=== PATIENT | female | born 1995 | race Caucasian/White ===

== ENCOUNTER 2019-04-22 11:21 | Emergency (ER) | payer OTHER, SELFPAY ==
[2019-04-22 11:28] VITALS: BP 142/97; PULSE 78; RESP 16; TEMP 36.6; O2SAT 99; BMI 25.7
--- NOTE | 2019-04-22 11:36 | ED_ITS ---
HPI - Chest Pain <SHELL Lau - Last Filed: 04/22/19 21:51> General Chief Complaint: Chest Pain Stated Complaint: Indigestion/coughed up blood last night Time Seen by Provider: 04/22/19 11:24 Source: patient Mode of arrival: ambulatory Limitations: no limitations History of Present Illness HPI narrative: 24-year-old feet with history of anxiety and fast heart rate for which she takes propranolol for constant chest pressure and pain starting six days ago. She states the pressure is substernal 5/10 worse with a deep breath and running around. She denies radiation of the pain. She has associated nausea and shortness of breath. She woke up in the middle night coughing and no ticed some blood tinged sputum. Patient denies fevers, headaches, abdominal pain, vomiting, diarrhea, syncope, diaphoresis, or other concerning symptoms. She denies any recent travel or long trips, denies taking any control, and denies her breast-feeding at this time. Patient states that she has been treated for H pylori 2 times in her life. MD complaint: chest pain Related Data Home Medications Medication Instructions Recorded Confirmed propranolol 60 mg PO QAM 04/22/19 04/22/19 sertraline 50 mg PO QPM 04/22/19 04/22/19 Previous Rx's Medication Instructions Recorded omeprazole 20 mg PO DAILY 14 Days #14 cap 04/22/19 Allergies Allergy/AdvReac Type Severity Reaction Status Date / Time No Known Drug Allergies Allergy Verified 04/22/19 11:28 Review of Systems <SHELL Lau - Last Filed: 04/22/19 21:51> Review of Systems Narrative: REVIEW OF SYSTEMS: GENERAL: Denies fever or chills. HENT: No head trauma, hearing loss or sore throat. EYES: No loss of vision, double vision, eye pain, or irritation. CARDIOVASCULAR: Complains of chest pain, see HPI. RESPIRATORY: Complains of shortness of breath, see HPI. GASTROINTESTINAL: Complains of nausea, see HPI. GENITOURINARY: No flank pain or dysuria. MUSCULOSKELETAL: No pain, weakness, or deformities. INTEGUMENTARY: No rash, lesions, or pruritus. NEURO: No numbness, tingling, memory loss, or confusion. PSYCH: No behavior or mood changes. PFSH <SHELL Lau - Last Filed: 04/22/19 21:51> Medical History Anxiety (Acute) Social History Smoking Status: Never smoker Social History Smoking Status: Never smoker Exam <SHELL Lau - Last Filed: 04/22/19 21:51> Initial Vital Signs Initial Vital Signs: Vital Signs Temperature 97.8 F 04/22/19 11:28 Pulse Rate 78 04/22/19 11:28 Respiratory Rate 16 04/22/19 11:28 Blood Pressure 142/97 H 04/22/19 11:28 Pulse Oximetry 99 04/22/19 11:28 PHYSICAL EXAMINATION: GENERAL: Well groomed, alert, and cooperative. Answers questions promptly and appropriately. Vital signs noted. HENT: Normocephalic, atraumatic. Ear canals patent. Oral mucosa is pink and moist. EYES: Conjunctiva pink, sclera white, no periorbital swelling. CHEST: Normal to inspection and without deformities. CARDIOVASCULAR: S1 and S2 sounds normal. Regular rate and rhythm, no murmurs, clicks, or bruits. No pedal edema. RESPIRATORY: Normal respiratory rate, trachea midline, airway patent. No strid or, nasal flaring or accessory muscle use. Lungs are clear in all diez without wheeze, rhonchi, or crackles. GASTROINTESTINAL: Bowel sounds normoactive. Abdomen is soft, slight tenderness noted epigastric region. No organomegaly. MUSCULOSKELETAL: Normal gait and coordination. Equal tone and mass bilaterally. EXTREMITIES: CMS intact. Moves all extremities. SKIN: Warm, dry, soft, appropriate color for ethnicity. No lesions, rashes, or wounds. NEURO: Alert and Oriented X 3. Good coordination. No ataxia, or sensory deficits, or cognitive issues. PSYCH: Appropriate affect and mood. <Fawn Valladares DO - Last Filed: 04/23/19 19:35> Initial Vital Signs Initial Vital Signs: Vital Signs Temperature 97.8 F 04/22/19 11:28 Pulse Rate 78 04/22/19 11:28 Respiratory Rate 16 04/22/19 11:28 Blood Pressure 142/97 H 04/22/19 11:28 Pulse Oximetry 99 04/22/19 11:28 Scores <SHELL Lau - Last Filed: 04/22/19 21:51> Wells' Criteria for PE Clinical signs and symptoms of DVT: No PE is #1 Dx or equally likely: No Heart rate > 100: No Immobilization at least 3 days or surg in previous 4 weeks: No History of PE or DVT: No Hemoptysis: Yes Malignancy w/Treatment within 6 months or palliative: No Wells' PE Score total: 1 Course <CassieSHELL Silver - Last Filed: 04/22/19 21:51> Course Course Narrative: Patient states she was feeling significantly better after administration of the GI cocktail. At a conversation with the patient about the importance of follow-up testing for H pylori. Orders Ordered: Discontinued Medications Al Hydrox/Mg Hydrox/Simethicone 20 ml/ Lidocaine HCl 15 ml 0 ml PO NOW ONE Stop: 04/22/19 11:47 Last Admin: 04/22/19 12:00 Dose: 35 ml Documented by: WILLUITT Pantoprazole Sodium (Protonix) 40 mg IV NOW ONE Stop: 04/22/19 12:22 Last Admin: 04/22/19 12:38 Dose: 40 mg Documented by: CPRUITT Consultations Consultation #1: Patient staffed with Dr. Valladares. Vital Signs Vital signs: Vital Signs - 8 hr 04/22/19 11:28 04/22/19 12:03 Temperature 97.8 F Pulse Rate 78 91 H Respiratory Rate 16 22 Blood Pressure 142/97 H Blood Pressure [Right Arm] 120/85 Pulse Oximetry 99 98 <Fawn Valladares DO - Last Filed: 04/23/19 19:35> Orders Ordered: Discontinued Medications Al Hydrox/Mg Hydrox/Simethicone 20 ml/ Lidocaine HCl 15 ml 0 ml PO NOW ONE Stop: 04/22/19 11:47 Last Admin: 04/22/19 12:00 Dose: 35 ml Documented by: CPRUITT Pantoprazole Sodium (Protonix) 40 mg IV NOW ONE Stop: 04/22/19 12:22 Last Admin: 04/22/19 12:38 Dose: 40 mg Documented by: CPRUITT Vital Signs Vital signs: Vital Signs - 8 hr 04/22/19 11:28 04/22/19 12:03 Temperature 97.8 F Pulse Rate 78 91 H Respiratory Rate 16 22 Blood Pressure 142/97 H Blood Pressure [Right Arm] 120/85 Pulse Oximetry 99 98 MDM - Chest Pain <Cassie Andrade SENIOR REPORT DEVELOPER - Last Filed: 04/22/19 21:51> Medical Records Data Attestation: I reviewed the patient's medical records. Lab Data Attestation: I reviewed the patient's lab results. Result diagrams: 04/22/19 11:44 04/22/19 11:44 Labs: Lab Results 04/22/19 04/22/19 04/22/19 Range/Units 11:44 11:44 11:44 WBC 7.0 (4.5-11.0) X10^3/uL RBC 4.77 (4.0-5.2) X10^6/uL Hgb 14.2 (12.0-16.0) g/dL Hct 41.1 (36-46) % MCV 86.1 (80-100) fL MCH 29.8 (26-34) PG MCHC 34.6 (30-36) % RDW 12.4 (11.6-14.8) % Plt Count 248 (150-400) X10^3/uL Neut % (Auto) 56.7 (50-75) % Lymph % (Auto) 34.0 (25-40) % [place] % (Auto) 6.4 (3-14) % Eos % (Auto) 2.3 (2-4) % Baso % (Auto) 0.6 (0-2) % Neut # (Auto) 4000 (1630-8508) /uL Lymph # (Auto) 2400 (1108-0169) /uL [place] # (Auto) 500 (0-900) /uL Eos # (Auto) 200 (0-450) /uL Baso # (Auto) 0 (0-100) /uL PT 10.5 (10.1-12.7) SECONDS INR 0.9 (0.9-1.3) APTT 39 H (26.4-36.2) SECONDS D-Dimer < 200 (<230) ng/mL Sodium 141 (137-145) mmol/L Potassium 3.7 (3.4-5.1) mmol/L Chloride 103 (98-107) mmol/L Carbon Dioxide 26 (22-32) mmol/L BUN 11 (7-17) mg/dL Creatinine 0.60 (0.52-1.04) mg/dL Estimated GFR > 60.0 (>60) mL/min BUN/Creatinine Ratio 18.3 (6-22) Glucose 106 H (70-100) mg/dL Calcium 9.5 (8.4-10.2) mg/dL Total Bilirubin 0.7 (0.2-1.3) mg/dL AST 69 H (14-36) IU/L ALT 212 H (9-52) IU/L Alkaline Phosphatase 99 (38-126) U/L Total Creatine Kinase 98 (30-135) U/L CK-MB (CK-2) TNP CK-MB (CK-2) Rel Index TNP Troponin I < 0.012 (0.01-0.034) ng/mL Total Protein 7.5 (6.3-8.2) g/dL Albumin 4.3 (3.5-5.0) g/dL Globulin 3.2 (1.7-4.1) g/dL Albumin/Globulin Ratio 1.3 (1.0-2.8) Lipase 64 (23-300) U/L Imaging Data Chest x-ray: Radiologist's impression: [address] [address] XRay Report Signed Patient: Travis RodarteR#: [id number] : 1995Acct:[id number] Age/Sex: 24 / FDate of Service: 04/22/19 Loc: ED Accession Number: [id number] Procedure: XR chest 1V Ordering Provider: Cassie Andrade PROCEDURE: XR CHEST 1V INDICATIONS: Chest pain TECHNIQUE: One view of the chest was acquired. COMPARISON: None. FINDINGS: Surgical changes and devices: None. Lungs and pleura: Lungs are clear. No pleural effusions or pneumothorax. Mediastinum: Mediastinal contours appear normal. Normal variant azygos lobe fissure. Heart size is normal. Bones and chest wall: No suspicious bony lesions. Overlying soft tissues appear unremarkable. IMPRESSION: Normal chest. Dictated by: Priscilla Doyle M.D. on 04/22/2019 at 12:02 Approved by: Priscilla Doyle M.D. on 04/22/2019 at 12:02 ECG Data Interpretation: Normal sinus rhythm, rate 67, NC interval 126, QTC 3 89. No ectopy, no ST depression or ST elevation. T-wave inversion in lead 3 possibly artifact. EKG also viewed by Dr. Valladares. [facility] Narrative Medical decision making narrative: I suspect that her symptoms may be due to GERD as her EKG, labs, and chest x-ray were reassuring. Additionally, her symptoms improved after administration of the GI cocktail. She is also known to have H pylori and GERD, and her exam exhibited epigastric tenderness. Less likely ACS due to reassuring labs and EKG, less likely PE due to negative D- dimer and very little risk factors. Less likely musculoskeletal as pain was not reproduced on palpation of her sternum. Less likely infection as she does not exhibit any systemic symptoms such as fever or chills, her white blood cell count within normal limits. Strict return precautions given and follow-up instructions discussed. <Fawn Valladares, DO - Last Filed: 04/23/19 19:35> Lab Data Labs: Lab Results 04/22/19 04/22/19 04/22/19 Range/Units 11:44 11:44 11:44 WBC 7.0 (4.5-11.0) X10^3/uL RBC 4.77 (4.0-5.2) X10^6/uL Hgb 14.2 (12.0-16.0) g/dL Hct 41.1 (36-46) % MCV 86.1 (80-100) fL MCH 29.8 (26-34) PG MCHC 34.6 (30-36) % RDW 12.4 (11.6-14.8) % Plt Count 248 (150-400) X10^3/uL Neut % (Auto) 56.7 (50-75) % Lymph % (Auto) 34.0 (25-40) % [place] % (Auto) 6.4 (3-14) % Eos % (Auto) 2.3 (2-4) % Baso % (Auto) 0.6 (0-2) % Neut # (Auto) 4000 (0149-4915) /uL Lymph # (Auto) 2400 (1155-8193) /uL [place] # (Auto) 500 (0-900) /uL Eos # (Auto) 200 (0-450) /uL Baso # (Auto) 0 (0-100) /uL PT 10.5 (10.1-12.7) SECONDS INR 0.9 (0.9-1.3) APTT 39 H (26.4-36.2) SECONDS D-Dimer < 200 (<230) ng/mL Sodium 141 (137-145) mmol/L Potassium 3.7 (3.4-5.1) mmol/L Chloride 103 (98-107) mmol/L Carbon Dioxide 26 (22-32) mmol/L BUN 11 (7-17) mg/dL Creatinine 0.60 (0.52-1.04) mg/dL Estimated GFR > 60.0 (>60) mL/min BUN/Creatinine Ratio 18.3 (6-22) Glucose 106 H (70-100) mg/dL Calcium 9.5 (8.4-10.2) mg/dL Total Bilirubin 0.7 (0.2-1.3) mg/dL AST 69 H (14-36) IU/L ALT 212 H (9-52) IU/L Alkaline Phosphatase 99 (38-126) U/L Total Creatine Kinase 98 (30-135) U/L CK-MB (CK-2) TNP CK-MB (CK-2) Rel Index TNP Troponin I < 0.012 (0.01-0.034) ng/mL Total Protein 7.5 (6.3-8.2) g/dL Albumin 4.3 (3.5-5.0) g/dL Globulin 3.2 (1.7-4.1) g/dL Albumin/Globulin Ratio 1.3 (1.0-2.8) Lipase 64 (23-300) U/L ECG Data Attestation: I personally reviewed and interpreted this ECG as follows: Prior ECG tracings: not available for review Interpretation: normal sinus rhythm, no ST changes, T wave inversions noted lead 3 only. Discharge Plan Departure Patient Disposition: Home Clinical Impression: Chest pain due to GERD, Atypical chest pain Discharge Date/Time: 04/22/19 13:04 Instructions: DI for Gastroesophageal Reflux Disease (GERD) Activity Restrictions/Additional Instructions: Thank you for entrusting me with your care today. As discussed, EKG and chest x- ray did not show any concerning findings. Your AST and ALT which are liver enzymes were little bit elevated, I recommend following up with your primary care provider in 1-2 weeks for re-evaluation of these labs as well as H pylori testing if indicated. I prescribed you omeprazole, please take 1 pill in the morning every day for 2 weeks. Return to the emergency department if you develop severe abdominal pain, severe chest pain, worsening shortness of breath, dizziness, syncope, uncontrollable vomiting, or other concerning symptoms. Prescriptions: New omeprazole 20 mg capsule,delayed release(DR/EC) 20 mg PO DAILY 14 Days Qty: 14 RF: 0 No Action propranolol 60 mg Capsule,Extended Release 24 Hr 60 mg PO QAM RF: 0 sertraline 50 mg Tablet 50 mg PO QPM RF: 0 Referrals: Edin Ordonez MD [Primary Care Provider] -
[2019-04-22 11:53] LABS: Add Manual Diff / Slide Review NO; Basophils Absolute Auto 0 /uL (0-100); Basophils Percent Auto 0.6 % (0-2); Eosinophils Absolute Auto 200 /uL (0-450); Eosinophils Percent Auto 2.3 % (2-4); Hematocrit 41.1 % (36-46); Hemoglobin 14.2 g/dL (12.0-16.0); Lymphocytes Absolute Auto 2400 /uL (1100-4500); Mean Corpuscular HGB Conc 34.6 % (30-36); Mean Corpuscular Hemoglobin 29.8 PG (26-34); Mean Corpuscular Volume 86.1 fL (80-100); Monocytes Absolute Auto 500 /uL (0-900); Monocytes Percent Auto 6.4 % (3-14); Neutrophils Absolute Auto 4000 /uL (1500-7000); Neutrophils Percent Auto 56.7 % (50-75); Platelet Count 248 X10^3/uL (150-400); Red Blood Cell Count 4.77 X10^6/uL (4.0-5.2); Red Cell Distribution Width 12.4 % (11.6-14.8)
[2019-04-22 11:57] LABS: INR 0.9 (0.9-1.3); Prothrombin Time 10.5 SECONDS (10.1-12.7)
[2019-04-22 11:59] LABS: PTT Partial Thromboplastin Tim 39 SECONDS (26.4-36.2)
[2019-04-22 12:00] LABS: D Dimer < 200 ng/mL (<230)
[2019-04-22] MEDS: MAG HYDROX/ALUMINUM/SIMETH SUS 20 ML, LIDOCAINE VISCOUS 2% 15 ML PO (12:00)
[2019-04-22 12:02] LABS: Alanine Aminotransferase 212 IU/L (9-52); Albumin 4.3 g/dL (3.5-5.0); Albumin Globulin Ratio 1.3 (1.0-2.8); Alkaline Phosphatase 99 U/L (38-126); Aspartate Aminotransferase 69 IU/L (14-36); BUN Creatinine Ratio 18.3 (6-22); Bilirubin Total 0.7 mg/dL (0.2-1.3); Blood Urea Nitrogen 11 mg/dL (7-17); Calcium 9.5 mg/dL (8.4-10.2); Carbon Dioxide 26 mmol/L (22-32); Chloride 103 mmol/L (98-107); Creatine Kinase 98 U/L (30-135); Estimated Glomerular Filt Rate > 60.0 mL/min (>60); Globulin 3.2 g/dL (1.7-4.1); Glucose 106 mg/dL (70-100); HEMOLYSIS < 15 (0-50); Lipase 64 U/L (23-300); Potassium 3.7 mmol/L (3.4-5.1); Sodium 141 mmol/L (137-145); Total Protein 7.5 g/dL (6.3-8.2)
[2019-04-22 12:03] VITALS: BP 120/85; PULSE 91; RESP 22; O2SAT 98
[2019-04-22 12:13] LABS: Troponin I < 0.012 ng/mL (0.01-0.034)
[2019-04-22 12:30] VITALS: BP 112/68; PULSE 71; RESP 15; O2SAT 99
[2019-04-22] MEDS: PANTOPRAZOLE 40 MG VIAL IV (12:38)
[2019-04-22 13:03] VITALS: BP 112/68; PULSE 82; RESP 12; O2SAT 100
== END 2019-04-22 13:04 | disposition home or self-care (01) ==
PROVIDERS: Emergency Provider Nurse Practitioner; PCP Family Medicine
DX: K21.9 Gastro-esophageal reflux disease without esophagitis (principal); R07.89 Other chest pain
CPT/HCPCS: 36415; 36591; 71045; 80053; 82550; 83690; 84484; 85025; 85379; 85610; 85730; 93005; 96374; 99282; 99285; C9113

== ENCOUNTER → 2019-07-16 13:32 | Outpatient (CLI) | payer OTHER, SELFPAY ==
[2019-07-16 15:04] LABS: Urine N gonorrhoeae NOT DETECTED
[2019-07-16 15:05] LABS: Urine Chlamydia NOT DETECTED
== END ==
PROVIDERS: PCP Family Medicine; Visit Provider Obstetrics & Gynecology
DX: Z11.3 Encounter for screening for infections with a predominantly sexual mode of transmission (principal); Z34.82 Encounter for supervision of other normal pregnancy, second trimester
CPT/HCPCS: 87491; 87591

== ENCOUNTER → 2019-09-11 13:45 | Outpatient (CLI) | payer OTHER, SELFPAY ==
[2019-09-11 14:20] LABS: Appearance Urine UA CLEAR; Bilirubin Urine UA NEGATIVE (NEGATIVE); Color Urine UA YELLOW; Glucose Urine UA NEGATIVE (Negative); Ketones Urine UA NEGATIVE (NEGATIVE); Leukocyte Esterase Urine UA NEGATIVE (NEGATIVE); Nitrite Urine UA NEGATIVE (Negative); Occult Blood Urine UA NEGATIVE (Negative); Protein Urine UA NEGATIVE (Negative); Urobilinogen Urine UA 0.2 E.U./dL (0.2)
[2019-09-11 14:24] LABS: pH Urine UA 6.5 (4.5-8.0)
[2019-09-11 14:26] LABS: Add Manual Diff / Slide Review NO; Basophils Absolute Auto 0 /uL (0-100); Basophils Percent Auto 0.3 % (0-2); Eosinophils Absolute Auto 100 /uL (0-450); Eosinophils Percent Auto 0.9 % (2-4); Hematocrit 33.7 % (36-46); Hemoglobin 11.9 g/dL (12.0-16.0); Lymphocytes Absolute Auto 1900 /uL (1100-4500); Lymphocytes Percent Auto 22.7 % (25-40); Mean Corpuscular HGB Conc 35.1 % (30-36); Mean Corpuscular Hemoglobin 30.9 PG (26-34); Mean Corpuscular Volume 87.9 fL (80-100); Monocytes Absolute Auto 700 /uL (0-900); Monocytes Percent Auto 7.8 % (3-14); Neutrophils Absolute Auto 5800 /uL (1500-7000); Neutrophils Percent Auto 68.3 % (50-75); Platelet Count 217 X10^3/uL (150-400); Red Blood Cell Count 3.84 X10^6/uL (4.0-5.2); Red Cell Distribution Width 12.9 % (11.6-14.8); White Blood Cell Count 8.5 X10^3/uL (4.5-11.0)
[2019-09-11 16:34] LABS: Hepatitis B Surface Antigen NEGATIVE s/c (NEGATIVE)
[2019-09-11 16:48] LABS: HIV 1 & 2 Ab/Ag 4th Gen Combo NEGATIVE (NEGATIVE)
[2019-09-11 17:25] LABS: Hep C Virus Ab w/Reflex Quant NEGATIVE s/c (NEGATIVE)
[2019-09-13 18:17] LABS: RPR Screen Nonreactive (Nonreactive)
[2019-09-14 18:30] LABS: AFP, Serum 54.9 ng/mL; Brief History NTD NG; Calc Gestational Age 18.3; Cigarette Smoker N; Donated Egg NOT GIVEN; Donor Egg Age NOT GIVEN; Estriol, Free 1.46 ng/mL; Inhibin A, Dimeric 109 pg/mL; Inhibin A, MoM 0.67; Maternal Ethnicity NOT GIVEN; Maternal Weight 162 lbs; Number of Fetuses NOT GIVEN; Previous Pregnancy Down Syndro NOT GIVEN; hCG, MoM 0.51; hCG, Serum 11.3 IU/mL
== END ==
PROVIDERS: PCP Family Medicine; Referring Provider Family Medicine; Visit Provider Family Medicine
DX: Z34.82 Encounter for supervision of other normal pregnancy, second trimester (principal)
CPT/HCPCS: 36415; 80055; 81003; 82105; 82677; 84702; 86336; 86787; 86803; 86850; 86900; 86901; 87086; 87389

== ENCOUNTER → 2019-09-26 14:05 | Outpatient (CLI) | payer OTHER, SELFPAY ==
--- NOTE | 2019-09-26 14:06 | DI.US.S_ITS ---
PROCEDURE: US OB >= 14 WEEKS FETUS INDICATIONS: ANATOMY OUTSIDE/PRIOR DATING DATA: Last menstrual period (LMP): 05/06/19. LMP-based estimated date of delivery (DEANNA): 02/10/20. First dating scan (date and location): 06/27/19. Estimated date of delivery (DEANNA) from first dating scan: 02/11/20. TECHNIQUE: Real-time scanning was performed of the fetus, with image documentation and biometric measurements. Endovaginal scanning: Not needed COMPARISON: [facility], , OB >= 14 WEEKS FETUS, 06/27/2019, 14:54. FINDINGS: General: A single living intrauterine gestation is present. Presentation: Transverse head right. Placenta: Placental position is posterior, without previa. Amniotic fluid index: 15.8 cm, normal range is 5-24 cm. heart rate: 145 beats per minute. Maternal cervical canal: 4.6 cm long. Normal lower limit is 2.5 cm. biometrics: Biparietal diameter: 5.2 cm, 21 weeks 5 days Head circumference: 19.6 cm, 21 weeks 6 days Abdominal circumference: 19.4 cm, 22 weeks 2 days Femur length: 3.5 cm, 20 weeks 6 days Estimated gestational age from initial scan: 20 weeks 2 days Composite gestational age from present scan: 21 weeks 5 days Estimated weight and percentile: 444 g, 98th percentile Measurement variability for biometric dating: +/- 7 days from 14 weeks to 15 weeks 6 days gestation, +/- 10 days from 16 weeks to 21 weeks 6 days gestation, +/- 2 weeks from 22 weeks to 27 weeks 6 days gestation, +/- 3 weeks for 28 weeks gestation or later. weight reference: 4500 g or EFW >90/95% is considered macrosomia or large for gestational age. EFW <10% is small for gestational age. EFW 5% or less is considered intra-uterine growth restriction. Anatomic survey: Neuro: Ventricles are non-dilated at less than 10 mm. Cisterna magna is normal at 3-11 mm. Cerebellum is normal in size and morphology. Nuchal skin fold: Normal at less than 6 mm between 14-21 weeks gestational age. Face: Nose and lips, facial profile are normal. Spine: No evidence for spina bifida. Heart: 4-chambered heart is present, with normal ventricular outflow tracts. Diaphragm: Diaphragm is intact. Stomach: Left-sided stomach is present. Kidneys: No hydronephrosis. Normal is less than 5 mm in 2nd trimester, less than 7 mm in 3rd trimester. Cord: 3-vessel cord has orthotopic insertion. Bladder: Normal in size. Extremities: All 4 extremities identified. IMPRESSION: Appropriate interval growth, no anomaly seen. The current estimated weight however is at the upper 98th percentile for current gestational age projected from the first OB ultrasound (most accurate). Please monitored for macrosomia in this patient and possible gestational diabetes. Followup for growth parameters in 2-3 weeks likely is warranted. Dictated by: Wan Villasenor M.D. on 09/26/2019 at 16:19 Approved by: Wan Villasenor M.D. on 09/26/2019 at 16:22
== END ==
PROVIDERS: PCP Family Medicine; Referring Provider Family Medicine; Visit Provider Family Medicine
DX: Z36.89 Encounter for other specified antenatal screening (principal); Z3A.21 21 weeks gestation of pregnancy
CPT/HCPCS: 76811

== ENCOUNTER → 2019-10-12 10:01 | Outpatient (CLI) | payer OTHER, SELFPAY ==
[2019-10-12 14:12] LABS: GTT (PREG) 1 Hour PP 50gm Dose 126 mg/dL (76-139)
== END ==
PROVIDERS: PCP Family Medicine; Referring Provider Family Medicine; Visit Provider Family Medicine
DX: O36.60X0 Maternal care for excessive fetal growth, unspecified trimester, not applicable or unspecified (principal)
CPT/HCPCS: 36415; 82950

== ENCOUNTER → 2019-10-21 14:45 | Outpatient (CLI) | payer OTHER, SELFPAY ==
--- NOTE | 2019-10-21 14:46 | DI.US.S_ITS ---
PROCEDURE: US OB LIMITED INDICATIONS: LGA OUTSIDE/PRIOR DATING DATA: Last menstrual period (LMP): 05/06/19. LMP-based estimated date of delivery (DEANNA): 02/10/20. First dating scan (date and location): 06/27/19. Estimated date of delivery (DEANNA) from first dating scan: 02/11/20. TECHNIQUE: Real-time scanning was performed of the fetus, with image documentation and biometric measurements. Endovaginal scanning: Not performed COMPARISON: [facility], OB >= 14 WEEKS FETUS, 09/26/2019, 14:13. [facility] OB <= 14 WEEKS FETUS, 07/16/2019, 8:39. [facility], OB >= 14 WEEKS FETUS, 06/27/2019, 14:54. FINDINGS: General: A single living intrauterine gestation is present. Presentation: Vertex. Placenta: Placental position is posterior, without previa. Amniotic fluid index: 17.9 cm, normal range is 5-24 cm. heart rate: 147 beats per minute. Maternal cervical canal: 4.3 cm long. Normal lower limit is 2.5 cm. biometrics: Biparietal diameter: 6.4 cm, 25 weeks 6 days Head circumference: 24.4 cm, 26 weeks 4 days Abdominal circumference: 22.0 cm, 26 weeks 3 days Femur length: 4.6 cm, 25 weeks zero days Estimated gestational age from initial scan: 23 weeks 6 days Composite gestational age from present scan: 26 weeks zero days Estimated weight and percentile: 870 g, not in range (previously 98th percentile) Measurement variability for biometric dating: +/- 7 days from 14 weeks to 15 weeks 6 days gestation, +/- 10 days from 16 weeks to 21 weeks 6 days gestation, +/- 2 weeks from 22 weeks to 27 weeks 6 days gestation, +/- 3 weeks for 28 weeks gestation or later. weight reference: 4500 g or EFW >90/95% is considered macrosomia or large for gestational age. EFW <10% is small for gestational age. EFW 5% or less is considered intra-uterine growth restriction. Other: Not applicable. IMPRESSION: Single living uterine fetus in vertex presentation. Greater than expected interval growth as detailed above in keeping with macrosomia (previously 98th percentile) Normal CARMINE Dictated by: Adan Vick M.D. on 10/21/2019 at 17:21 Approved by: Adan Vick M.D. on 10/21/2019 at 17:27
== END ==
PROVIDERS: PCP Family Medicine; Referring Provider Family Medicine; Visit Provider Family Medicine
DX: O36.62X0 Maternal care for excessive fetal growth, second trimester, not applicable or unspecified (principal); Z3A.26 26 weeks gestation of pregnancy
CPT/HCPCS: 76815

== ENCOUNTER → 2019-11-19 12:23 | Outpatient (CLI) | payer OTHER, SELFPAY ==
[2019-11-19 15:40] LABS: GTT (PREG) 1 Hour PP 50gm Dose 168 mg/dL (76-139)
[2019-11-19 15:57] LABS: Hematocrit 33.3 % (36-46); Hemoglobin 11.3 g/dL (12.0-16.0); Mean Corpuscular Volume 91.3 fL (80-100); Platelet Count 191 X10^3/uL (150-400); Red Blood Cell Count 3.65 X10^6/uL (4.0-5.2); Red Cell Distribution Width 13.3 % (11.6-14.8); White Blood Cell Count 8.6 X10^3/uL (4.5-11.0)
== END ==
PROVIDERS: PCP Family Medicine; Referring Provider Family Medicine; Visit Provider Family Medicine
DX: Z34.83 Encounter for supervision of other normal pregnancy, third trimester (principal); Z3A.28 28 weeks gestation of pregnancy
CPT/HCPCS: 36415; 82950; 85027

== ENCOUNTER → 2019-11-25 07:50 | Outpatient (CLI) | payer OTHER, SELFPAY ==
[2019-11-25 09:58] LABS: Glucose 1 Hour Gest 133 mg/dL (76-180)
[2019-11-25 10:01] LABS: Glucose Fasting Gestational 77 mg/dL (76-95)
[2019-11-25 11:24] LABS: Glucose Tol Interp,Gestational INTERPRETATION
[2019-11-25 11:26] LABS: Glucose 2 Hour Gest 131 mg/dL (76-155)
[2019-11-25 12:05] LABS: Glucose 3 Hour Gest 140 mg/dL (76-140)
== END ==
PROVIDERS: PCP Family Medicine; Referring Provider Family Medicine; Visit Provider Family Medicine
DX: R73.09 Other abnormal glucose (principal)
CPT/HCPCS: 36415; 82951; 82952

== ENCOUNTER → 2020-01-06 07:09 | Outpatient (CLI) | payer OTHER, SELFPAY ==
--- NOTE | 2020-01-06 07:10 | DI.US.S_ITS ---
PROCEDURE: US OB LIMITED INDICATIONS: LGA OUTSIDE/PRIOR DATING DATA: Last menstrual period (LMP): 05/06/19. LMP-based estimated date of delivery (DEANNA): 02/10/20. First dating scan (date and location): 06/27/19, by Dr. Mehta. Estimated date of delivery (DEANNA) from first dating scan: 02/11/20, by Dr. Mehta. TECHNIQUE: Real-time scanning was performed of the fetus, with image documentation. Endovaginal scanning: Not needed COMPARISON: [facility], OB LIMITED, 10/21/2019, 14:56. FINDINGS: A single living intrauterine gestation is present. Presentation: Vertex. Placenta: Placental position is fundal, without previa. Amniotic fluid index: 13.7 cm, normal range is 5-24 cm. heart rate: 158 beats per minute. Estimated gestational age from initial scan: 34 weeks 6 days. biometry is internally consistent with a current gestational age estimate of 36 weeks 5 days. BPD 9.2 cm, 37 weeks 3 days; head circumference 32.2 cm, 36 weeks 3 days; abdominal circumference 32.3 cm, 36 weeks 2 days; femur length 7.1 cm, 36 weeks 4 days. The composite growth parameters yield a current estimated weight is 2949 g, at the 18th percentile, in the normal range. IMPRESSION: Appropriate interval growth, current weight is at the 18th percentile, within the normal range for current gestational age. No sign of macrosomia or abnormal elevation of amniotic fluid index. Dictated by: Wan Villasenor M.D. on 01/06/2020 at 9:29 Approved by: Wan Villasenor M.D. on 01/06/2020 at 9:32
== END ==
PROVIDERS: PCP Family Medicine; Referring Provider Family Medicine; Visit Provider Family Medicine
DX: Z36.88 Encounter for antenatal screening for fetal macrosomia (principal); Z3A.36 36 weeks gestation of pregnancy
CPT/HCPCS: 76815

== ENCOUNTER → 2020-01-14 10:22 | Outpatient (CLI) | payer OTHER, SELFPAY ==
[2020-01-15 19:00] LABS: Strep Grp B PCR NEG for Grp B Strep
== END ==
PROVIDERS: PCP Family Medicine; Visit Provider Family Medicine
DX: Z34.90 Encounter for supervision of normal pregnancy, unspecified, unspecified trimester (principal); Z3A.36 36 weeks gestation of pregnancy
CPT/HCPCS: 87653

== ENCOUNTER → 2020-02-05 07:35 | Outpatient (CLI) | payer OTHER, SELFPAY ==
--- NOTE | 2020-02-05 07:36 | DI.US.S_ITS ---
PROCEDURE: US OB LIMITED INDICATIONS: LGA OUTSIDE/PRIOR DATING DATA: Last menstrual period (LMP): 05/06/19. LMP-based estimated date of delivery (DEANNA): 02/10/20. First dating scan (date and location): 06/27/19. Estimated date of delivery (DEANNA) from first dating scan: 02/11/20. TECHNIQUE: Real-time scanning was performed of the fetus, with image documentation and biometric measurements. Endovaginal scanning: None COMPARISON: [facility], OB LIMITED, 01/06/2020, 7:31. FINDINGS: General: A single living intrauterine gestation is present. Presentation: Vertex. Placenta: Placental position is left and fundal, without previa. Amniotic fluid index: 11.1 cm, normal range is 5-24 cm. heart rate: 122 beats per minute. Maternal cervical canal: Not seen biometrics: Biparietal diameter: 9.6 cm, 39 weeks, 2 days Head circumference: 33.3 cm, 38 weeks, zero days Abdominal circumference: 34.4 cm, 38 weeks, 2 days Femur length: 7.7 cm, 39 weeks, 3 days Estimated gestational age from initial scan: 39 weeks, one day. Composite gestational age from present scan: 38 weeks, 5 days Estimated weight and percentile: 3556 g plus or -526 g, 58th percentile Measurement variability for biometric dating: +/- 7 days from 14 weeks to 15 weeks 6 days gestation, +/- 10 days from 16 weeks to 21 weeks 6 days gestation, +/- 2 weeks from 22 weeks to 27 weeks 6 days gestation, +/- 3 weeks for 28 weeks gestation or later. weight reference: 4500 g or EFW >90/95% is considered macrosomia or large for gestational age. EFW <10% is small for gestational age. EFW 5% or less is considered intra-uterine growth restriction. Other: Not applicable. IMPRESSION: 1. Single living intrauterine with appropriate growth since the prior study. Dictated by: Priscilla Doyle M.D. on 02/05/2020 at 10:08 Approved by: Priscilla Doyle M.D. on 02/05/2020 at 10:11
== END ==
PROVIDERS: PCP Family Medicine; Referring Provider Family Medicine; Visit Provider Family Medicine
DX: O36.63X0 Maternal care for excessive fetal growth, third trimester, not applicable or unspecified (principal); Z3A.38 38 weeks gestation of pregnancy
CPT/HCPCS: 76815

== ENCOUNTER 2020-02-10 08:21 | Inpatient (IN) | payer OTHER, SELFPAY ==
--- NOTE | 2020-02-10 08:39 | P.HPOB_ITS ---
OB HPI Date/Time Date of admission: 02/10/20 Date Patient Seen: 02/10/20 Time Patient Seen: 12:37 History of Present Condition Chief complaint: OBSERVATION OF LABOR : 3 Para: 2 Estimated Date of Delivery: 02/10/20 Estimated Gestational Age (weeks): 40w0d Narrative: Travis Rodarte is a 24 year old at 40w0d who presented with regular painful contractions. She reports having contractions starting around 5 am, increasing in frequency and intensity since then. No LOF or vaginal bleeding. She is feeling her baby move regularly. History of Present care: good care, initiated at week # (10) and pounds weight gain (22) Dating criteria: LMP confirmed by 1st trimester US Ultrasounds: normal 1st trimester US and normal mid trimester US Abnormal ultrasound findings: LGA on anatomy ultrasound, confirmed on f/u growth ultrasounds Medical complications: cardiovascular (tachycardia on Metoprolol), neurological (migraines on metoclopramide) and psychiatric (anxiety on Sertraline) Preadmission Labs Blood type: O (+) positive -: Antibody screen: negative, GBS status: negative, HBsAG: negative, HIV: negative and RPR/VDLR: negative -: Chlamydia screen: not detected and Gonorrhea screen: not detected -: Rubella: not immune and Varicella: immune HCT: 38.3 HCAB: negative Quad screen: Normal Urine: Negative 1 hr GTT: 168 3 hr GTT: 1 hr (133), 2 hr (131) and 3 hr (140) Fasting blood glucose: 77 Prior (ies) History: 09/21/14 - at 39w5d, 7lb8oz male 06/23/16 - at 39w5d, 7lb4oz female Evaluation Evaluation Baseline heart rate: 120 Variability: Moderate (11-25) monitor accelerations: Present monitor decelerations: Absent Contraction Frequency (minutes): 6 Uterine Contraction Intensity: Strong/Firm Category of Tracing: I Cervical dilation (cm): 4 Cervical effacement (%): 80 station: 0 PFSH Medical History (Updated 09/16/19 @ 15:58 by Kate Damon MD) Anemia (Acute) Anxiety (Acute) Fracture, jaw (Acute) Helicobacter pylori (H. pylori) infection (Acute) Tachycardia (Acute) Surgical History (Updated 07/15/19 @ 10:26 by Milka Reddy RN) H/O arthroscopic knee surgery (Acute) Hx of right knee surgery (Acute) [place] teeth extracted (Acute) Family History (Updated 07/15/19 @ 09:52 by Milka Reddy, CONNIE) Mother Hypertension Gestational diabetes Hypothyroid Father Hypertension Depression PTSD (post-traumatic stress disorder) Anxiety Bipolar 1 disorder Grandmother CVA (cerebral vascular accident) Grandfather Hypertension Grandmother No problems noted. Grandfather COPD (chronic obstructive pulmonary disease) Lung cancer Sister Anxiety Brother Anxiety Depression Social History marital status: household members: spouse, family and children (2) pets and animals: No education level: high school (and three years toward her College Degree) occupational status: unemployed current occupational exposures/hazards: No special cielo needs: No Smoking Status: Never smoker Meds Home Medications and Allergies Home Medications Medication Instructions Recorded Confirmed Type metoprolol tartrate 25 mg tablet 25 mg PO BID #60 tab 06/12/19 02/10/20 Rx prenat.vits,vani,[id number]-[id number] 1 tab PO DAILY 07/15/19 02/10/20 History sertraline 50 mg tablet 50 mg PO DAILY #30 tab 11/19/19 02/10/20 Rx Allergies Allergy/AdvReac Type Severity Reaction Status Date / Time No Known Drug Allergies Allergy Verified 12/31/19 10:22 Exam Narrative Exam Narrative: Gen: NAD, laying in bed, appears well CV: RRR, no murmurs Resp: clear to auscultation bilaterally Abd: soft, nondistended, gravid Ext: no edema Objective Labs Result Diagrams: 02/10/20 08:45 Assessment and Plan Assessment and Plan Assessment and Plan narrative: 24yo at 40w0d here in active labor. EFW > 98th%ile on anatomy scan and f/u growth scan. Early glucola normal, repeat glucola at 28 weeks elevated with normal 3hr GTT. Fundal heights gradually no rmalized, and growth u/s at 39 wks showing EFW at 58th percentile. No other complications with . GBS negative, Rh positive. - Expectant management, anticipate - FHT reassuring - GBS negative, no prophylaxis - Epidural for pain control
[2020-02-10 08:50] LABS: Add Manual Diff / Slide Review NO; Basophils Absolute Auto 0 /uL (0-100); Basophils Percent Auto 0.3 % (0-2); Eosinophils Absolute Auto 0 /uL (0-450); Eosinophils Percent Auto 0.3 % (2-4); Hematocrit 38.3 % (36-46); Lymphocytes Absolute Auto 2000 /uL (1100-4500); Lymphocytes Percent Auto 16.4 % (25-40); Mean Corpuscular HGB Conc 33.9 % (30-36); Mean Corpuscular Hemoglobin 30.5 PG (26-34); Monocytes Absolute Auto 900 /uL (0-900); Monocytes Percent Auto 7.7 % (3-14); Neutrophils Absolute Auto 9100 /uL (1500-7000); Neutrophils Percent Auto 75.3 % (50-75); Platelet Count 181 X10^3/uL (150-400); Red Blood Cell Count 4.26 X10^6/uL (4.0-5.2); Red Cell Distribution Width 13.4 % (11.6-14.8); White Blood Cell Count 12.1 X10^3/uL (4.5-11.0)
[2020-02-10] MEDS: LACTATED RINGERS 1,000 ML 100 ML IV ×2 (08:50→09:50)
[2020-02-10] MEDS: FENT 2MCG/ML BUPIV 0.125% EPI 200 MCG/100 ML PLAST..BAG 10 MCG EPIDURAL (09:30)
[2020-02-10 10:31] VITALS: BP 130/80
[2020-02-10 10:47] LABS: COVID19 -Nasal RAPID Negative (Negative)
[2020-02-10] MEDS: OXYTOCIN PREMIX 30 UNIT/500 ML PLAST..BAG IV (11:32)
--- NOTE | 2020-02-10 12:45 | PM.OBPNLAB ---
Date/Time Date Patient Seen: 02/10/20 Time Patient Seen: 12:45 Pain Control Pain control: epidural Pelvic Exam Dilation (cm): 9 Effacement (%): 100 station: 0 Amniotic membrane status: Ruptured Comments: After informed consent, AROM performed with production of clear fluid. Contractions Pitocin rate (mU/min): 3 Contraction frequency (min): 2 Contraction pattern: Regular Contraction intensity: Strong/Firm Status status: Category l Heart Rate Baseline: 130 Monitor Accelerations: Present Monitor Decelerations: Absent Monitor Variability: Moderate Assessment and Plan Comments: 24yo at 40w0d here in active labor. EFW > 98th%ile on anatomy scan and f/u growth scan. Early glucola normal, repeat glucola at 28 weeks elevated with normal 3hr GTT. Fundal heights gradually normalized, and growth u/s at 39 wks showing EFW at 58th percentile. No other complications with . AROM performed with production of clear fluid. GBS negative, Rh positive. - Expectant management, anticipate - FHT reassuring - GBS negative, no prophylaxis - Epidural for pain control
--- NOTE | 2020-02-10 13:31 | P.PCNOB_ITS ---
Labor & Delivery Delivery date: 02/10/20 Cervical ripening method: none Delivery augmentation: rupture of membranes and pitocin Delivery monitor: external FHT Route of delivery: Episiotomy description: None L&D Laceration Description: None Estimated blood loss (mL): 100 Anesthesia type: Epidural Complications: None [place] Baby 1: gender: Male Presentation: compound (right hand on face) position: Right Occiput Anterior Placenta delivery description: Spontaneous cord vessel description: 3 Vessels score (1 min): 7 score (5 min): 9 Narrative: PROCEDURE: at 40w0d presented in active labor and was admitted to Labor and Delivery. The patient progressed through the 1st stage over 4.5 hours. Pain was controlled with an epidural. Pitocin was started due to very spaced contractions, and then AROM performed with clear fluid present when the pt was 9cm. The patient progressed through the 2nd stage over 13 minutes and delivered a viable male infant with APGARs 7/9 at 13:05 via without complications. The perineum and vagina were inspected with no lacerations. PREPROCEDURE DIAGNOSIS: Intrauterine at 40w0d GBS negative RH positive Tachycardia Anxiety POSTPROCEDURE DIAGNOSIS: Intrauterine at 40w0d, delivered Same as preprocedure ROM APPEARANCE: Clear BABY A WEIGHT: 8lb12.7oz BABY A NUCHAL CORD: None PLACENTA DELIVERY TIME: 13:09 PLACENTA APPEARANCE: Intact Plan for aftercare: Normal care
[2020-02-10] MEDS: IBUPROFEN 600 MG TABLET PO (19:40)
[2020-02-10] MEDS: SERTRALINE 50 MG TABLET PO (21:03)
[2020-02-10] MEDS: METOPROLOL IR 25 MG TABLET PO (21:04)
[2020-02-11] MEDS: IBUPROFEN 600 MG TABLET PO ×2 (04:36→10:47)
--- NOTE | 2020-02-11 08:44 | P.DS_ITS ---
Discharge Providers Provider Date of admission: 02/10/20 08:21 Discharge Date: 02/11/20 Primary care physician: Edin Ordonez MD Consults: 02/11/20 13:30 Consult to Semaphore Operator Routine Comment: Discharge provider: Kate Damon MD Summary Hospital Course Date Patient Seen: 02/11/20 Time Patient Seen: 07:45 Procedures: Spontaneous vaginal delivery Hospital Course: The pt presented in active labor. She received an epidural for pain control. Due to slowing of contractions and cervical change after epidural, pitocin was started. AROM was performed with production of clear fluid. The pt progressed to complete and had an uncomplicated of a viable baby boy on 02/10/20. There were no lacerations. Pt tolerated delivery well. , there were no complications. At the time of discharge she was voiding, ambulating, and passi ng flatus without difficulty. Her lochia was decreasing appropriately. Her pain was well controlled. She was with good latch. She will f/u in clinic in 6 weeks for her check. She would potentially like a tubal ligation for contraception, and will follow-up with SENIOR CONTRACTS MANAGER regarding this. Peripartum Data Delivery Method: Natural Vaginal Laceration description: None Episiotomy description: None Procedures: Spontaneous vaginal delivery complications: none [place] 1: Gender: Male Disposition of : home Discharge Diagnosis (1) Spontaneous vaginal delivery: Status: Acute (2) Tachycardia: Status: Acute Problem Details: Patient is on Rx runs 80-90bpm : otherwise runs up higher from 115 -130's. When not on meds HR ran up to 180's. On Rx now for 3 years. (3) Anxiety: Status: Acute Status at Discharge Cognitive/behavioral status at discharge: oriented Functional status at discharge: independent ambulation Overall status at discharge: patient is progressing back to baseline Time Spent with Patient Time attestation: Total time spent providing and/or coordinating discharge services: Objective Labs Result Diagrams: 02/10/20 08:45 Labs: Laboratory Results - last 24 hr 02/10/20 02/10/20 02/10/20 08:45 08:45 09:00 WBC 12.1 H RBC 4.26 Hgb 13.0 Hct 38.3 MCV 90.0 MCH 30.5 MCHC 33.9 RDW 13.4 Plt Count 181 Neut % (Auto) 75.3 H Lymph % (Auto) 16.4 L [place] % (Auto) 7.7 Eos % (Auto) 0.3 L Baso % (Auto) 0.3 Neut # (Auto) 9100 H Lymph # (Auto) 2000 [place] # (Auto) 900 Eos # (Auto) 0 Baso # (Auto) 0 COVID-19 PCR Negative Blood Type O Positive Antibody Screen Negative Exam Narrative Exam Narrative: Gen: NAD, sitting comfortably in bed, appears well CV: RRR, no murmurs Resp: clear to auscultation bilaterally Abd: soft, nontender, nondistended, fundus firm and below umbilicus Ext: no edema Discharge Plan Discharge Plan Patient Disposition: Home Discharge orders & Medications Prescriptions: New acetaminophen 325 mg Tablet 650 mg PO Q6HR PRN (Reason: Pain, Mild (1-3)) Qty: 30 RF: 0 Dermoplast (with menthol) 20-0.5 % Aerosol 1 spray topical Q1HR PRN (Reason: perineal pain) Qty: 56 RF: 0 docusate sodium [DOK] 100 mg Capsule 100 mg PO DAILY Qty: 30 RF: 0 ibuprofen 600 mg Tablet 600 mg PO Q6HR PRN (Reason: Pain, Mild (1-3)) Qty: 30 RF: 0 Ono-J-Dcyevm Cream 1 applic topical PRN PRN (Reason: Tenderness) Qty: 15 RF: 0 (DME) breast pump Device See Rx Instructions .ROUTE .MEDSUPPLY Qty: 1 RF: 0 Continued sertraline 50 mg tablet 50 mg PO DAILY Qty: 30 RF: 2 metoprolol tartrate 25 mg tablet 25 mg PO BID Qty: 60 RF: 3 prenat.vits,vani,akf-sxgw-ktfkv Tablet 1 tab PO DAILY RF: 0 Follow up/Referrals: Edin Ordonez MD [Primary Care Provider] - Kate Damon MD [Physician] - 6 Weeks (please f/u w/ Dr. Damon on @ 2:30pm) Diet/Activity/Treatments Diet: Diet as Tolerated and Regular Visit Report/Discharge Packet Instructions: DI for Labor and Delivery, Vaginal Stand Alone Forms: Discharge: Care Visit Report Forms: Patient Portal/API, Stroke Signs & Symptoms Discharge Data Primary Care Provider: Edin Ordonez Discharges patient from system. Discharge Date/Time: 02/11/20 12:03
[2020-02-11] MEDS: PRENATAL VIT,CALC/IRON/FOLIC 1 TABLET 1 TAB PO (10:46)
[2020-02-11] MEDS: DOCUSATE 100 MG CAPSULE PO (10:47)
[2020-02-11] MEDS: METOPROLOL IR 25 MG TABLET PO (10:47)
== END 2020-02-11 12:03 | disposition home or self-care (01) | DRG 807 ==
PROVIDERS: Admitting Provider Family Medicine; PCP Family Medicine; Referring Provider Family Medicine; Visit Provider Family Medicine
DX: O80 Encounter for full-term uncomplicated delivery (principal); Z37.0 Single live birth; Z3A.40 40 weeks gestation of pregnancy
CPT/HCPCS: 01967; 59050; 59400; 85025; 86850; 86900; 86901; 87635; G0379; J2590

== ENCOUNTER → 2020-04-24 14:19 | Outpatient (CLI) | payer OTHER, SELFPAY ==
[2020-04-26 14:06] LABS: COVID19 Sendout Not Detected (Not Detect)
== END ==
PROVIDERS: PCP Family Medicine; Visit Provider Physician Assistant
DX: Z11.59 Encounter for screening for other viral diseases (principal)
CPT/HCPCS: 87635

== ENCOUNTER 2020-04-27 09:27 | Day surgery (SDC) | payer OTHER, SELFPAY ==
[2020-04-22 10:56] VITALS: BMI 26.9
[2020-04-27] VITALS (11 sets, daily range): BP systolic 93–118; BP diastolic 49–72; PULSE 56–77; RESP 10–17; TEMP 36–36.2; O2SAT 95–99; BMI 26.9
[2020-04-27] MEDS: LACTATED RINGERS 1,000 ML 100 ML IV (10:01)
--- NOTE | 2020-04-27 11:10 | SUR.OPER ---
Lithotomy on padded OR bed, head on pillow, arms secured on padded arm boards at <90 degrees abduction. Legs secured in padded yellow fins stirrups.
--- NOTE | 2020-04-27 11:15 | PM.HP.1 ---
History of Present Illness History of Present Illness Date Patient Seen: 04/27/20 Time Patient Seen: 11:15 Chief complaint: LAP MICHELLE TUBAL LIGATION Narrative: Patient is a 25-year-old 3 para 3003 who presents for a laparoscopic bilateral tubal ligation with electrocautery Patient History Medical History (Updated 03/16/20 @ 08:38 by Henny Mehta MD) Anemia (Acute) Anxiety (Acute) Fracture, jaw (Acute) Helicobacter pylori (H. pylori) infection (Acute) Tachycardia (Acute) Surgical History (Updated 07/15/19 @ 10:26 by Milka Reddy, CONNIE) H/O arthroscopic knee surgery (Acute) Hx of right knee surgery (Acute) [place] teeth extracted (Acute) Family & Social History Family History (Updated 07/15/19 @ 09:52 by Milka Reddy, CONNIE) Mother Hypertension Gestational diabetes Hypothyroid Father Hypertension Depression PTSD (post-traumatic stress disorder) Anxiety Bipolar 1 disorder Grandmother CVA (cerebral vascular accident) Grandfather Hypertension Grandmother No problems noted. Grandfather COPD (chronic obstructive pulmonary disease) Lung cancer Sister Anxiety Brother Anxiety Depression Social History: household members spouse,family,children Tobacco & Substance use: Smoking Status Never smoker alcohol intake frequency a few times a week Substance Use Type does not use Meds Home Medications and Allergies Home Medications Medication Instructions Recorded Confirmed Type sertraline 50 mg tablet 50 mg PO DAILY #30 tab 11/19/19 04/27/20 Rx breast pump #1 each 02/11/20 03/16/20 Rx metoprolol tartrate 25 mg tablet 25 mg PO BID #60 tab 02/19/20 04/27/20 Rx Allergies Allergy/AdvReac Type Severity Reaction Status Date / Time No Known Drug Allergies Allergy Verified 03/16/20 08:15 Exam Vital Signs (past 8 hours): - 04/27/20 09:44 Temperature 97.1 F L Pulse Rate 68 Respiratory Rate 16 Blood Pressure 105/69 Pulse Oximetry 98 Oxygen Delivery Method Room Air Narrative Exam Narrative: HEENT: No thyromegaly, no anterior cervical or supraclavicular lymphadenopathy. Lungs:Clear to auscultation bilaterally, no wheezes. Cardiovascular: Regular rate and rhythm, no murmurs, rubs, or gallops. Abdomen: No scars. No hepatosplenomegaly. No masses palpable. External genitalia: Normal Vagina: Normal Cervix: Normal Bimanual exam: 7 Week size uterus. Mobile. No adnexal masses or tenderness Rectal: No masses. Assessment & Plan Assessment & Plan narrative: Assessment: 25-year-old 3 para 3003 who desires permanent sterilization Plan: Laparoscopic bilateral tubal ligation with electrocautery The risks, benefits, and alternatives to the procedure were explained to the patient. The risks including bleeding, infection, injury to the bowel, bladder, or ureters. She understands these risks and agrees to proceed. A full par Q was held and consent form was signed. COVID-19 COVID-19 status: Negative Result date/Date tested (Pos, Neg/Pending): 04/24/20 Time Spent With Patient Time with patient: 15-24 minutes
--- NOTE | 2020-04-27 11:17 | PM.PREOP ---
Pre-operative Note COVID-19 COVID-19 status: Negative Result date/Date tested (Pos, Neg/Pending): 04/24/20 Interval Note History & Physical reviewed/Exam performed by Physician: Yes Changes to H&P: No H&P completed within 30 days and has changed as indicated here:: 04/27/20
[2020-04-27] MEDS: BUPIVACAINE 0.5% W/ EPI (PF) 30 ML VIAL INJ (11:45)
[2020-04-27] MEDS: ONDANSETRON 4 MG/2 ML INJ IV (12:14)
--- NOTE | 2020-04-27 12:16 | PM.GYNOP.1 ---
Operative Date/Time/Diagnoses Date of procedure: 04/27/20 Time of procedure: 12:16 Pre-op diagnosis: Desires permanent sterilization Multiparity Post-op diagnosis: same Procedure & Clinicians Procedure: Procedures Operation Date: 04/27/20 10:45 Actual Procedures Side Surgeon p Laparoscopic Bilateral Tubal Ligation Henny Mehta MD Indications: Desires permanent sterilization Multiparity Surgeon: Henny Mehta Anesthesia Type: General Operative Notes Findings: Six week size anteverted uterus Normal tubes and ovaries Normal appendix Normal liver and gallbladder Closure Type: primary Specimen(s): none Estimated blood loss (mL): 5 Blood products transfused: none Procedure in detail: After informed consent was obtained, the patient was taken to the operating room where she was placed in the dorsal supine position. After adequate general endotracheal anesthesia was achieved, she was placed in the dorsal lithotomy position, and prepped and draped in the usual sterile fashion. A time-out was performed. A bivalve speculum was placed into the vagina and the anterior lip of the cervix was grasped with a single-tooth tenaculum. The cervical os was sequentially dilated until the Zumi uterine manipulator could pass easily into the endometrial cavity. The single-tooth tenaculum was removed from the anterior lip of the cervix. The bivalve speculum was removed from the vagina. Attention was then turned to the abdomen where 6 cc of 0.5% Marcaine with epinephrine were injected in the umbilical fold. A 1 cm incision was made. The Veress needle was placed into the peritoneal cavity, and its placement confirmed by aspiration and drop test. The abdominal cavity was insufflated with 3.8 L of CO2. The Veress needle was removed, and a 10 mm trocar was placed without difficulty. The operative laparoscopic passed easily into the peritoneal cavity. The probe was used to identify the appendix and both tubes and ovaries. The right upper quadrant was visualized liver and gallbladder were normal. The uterus was lifted out of the pelvis with the Zumi. The right tube was identified and carried out to the fimbriated end. The tube was cauterized x3 with the Klescottyinger. This was repeated on the patient's left tube. Hemostasis was achieved. The instruments were removed from the abdomen. The CO2 was allowed to escape. The trocar was removed from the umbilicus. The fascia was closed with 0 Vicryl with a hxcwct-py-svdeh suture. The skin was closed with 4-0 Biosyn in a subcuticular fashion. Hemostasis was achieved. Steri-Strips, 2 x 2, and op site were placed over the incision. The Zumi uterine manipulator was removed from the uterus. Sponge, lap, and instrument counts were correct x2. The patient tolerated the procedure well, and was taken to PACU in stable condition. Complications: none Post-operative Condition: stable Disposition: PACU Plan for aftercare: Home after recovery
[2020-04-27] MEDS: METOCLOPRAMIDE 10 MG/2 ML INJ IV (12:45)
== END 2020-04-27 13:45 | disposition home or self-care (01) ==
PROVIDERS: PCP Family Medicine; Referring Provider Obstetrics & Gynecology; Visit Provider Obstetrics & Gynecology
PROC: (CPT 58671; principal; 2020-04-27 10:45)
DX: Z30.2 Encounter for sterilization (principal); D64.9 Anemia, unspecified; F41.9 Anxiety disorder, unspecified; R00.0 Tachycardia, unspecified
CPT/HCPCS: 58670; J0330; J1100; J1885; J2250; J2405; J2704; J2765; J3010

== ENCOUNTER → 2020-07-09 11:32 | Outpatient (CLI) | payer OTHER, SELFPAY ==
[2020-07-09 11:55] LABS: COVID19 -Nasal RAPID Negative (Negative)
== END ==
PROVIDERS: PCP Family Medicine; Visit Provider Physician Assistant
DX: Z11.59 Encounter for screening for other viral diseases (principal); R11.0 Nausea; R07.9 Chest pain, unspecified; R53.83 Other fatigue
CPT/HCPCS: 87635

== ENCOUNTER → 2020-09-07 10:51 | Outpatient (CLI) | payer OTHER, SELFPAY ==
--- NOTE | 2020-09-07 | DI.US.S_ITS ---
LIMITED ULTRASOUND OF RIGHT BREAST AND AXILLA: 09/07/2020 CLINICAL: Palpable right axilla lump with diffuse right breast pain. No prior exams were available for comparison. Real-time ultrasound of the right breast axilla was performed. Mora scale images of the real-time examination were reviewed. No significant abnormalities were seen sonographically in the right breast or the right axilla. IMPRESSION: NEGATIVE There is no sonographic evidence of malignancy. There is no abnormality seen in the right breast to correspond with the pain, however, clinical correlation is recommended. There is no abnormality seen in the right axilla to correspond with the palpable abnormality in the right axilla, however, clinical correlation is recommended. Follow-up with ACR/ACS guidelines. This exam was interpreted at Station ID: [id number]. Electronically Signed By: Feng golden/magan:09/07/2020 13:32:48 letter sent: Clinical Evaluation Ultrasound BI-RADS: 1 Negative
--- NOTE | 2020-09-07 11:24 | DI.RAD.S_ITS ---
PROCEDURE: XR KNEE RT 3V INDICATIONS: right knee pain TECHNIQUE: 3 views of the knee were acquired. COMPARISON: None. FINDINGS: Bones: No fractures or dislocations. No suspicious bony lesions. Soft tissues: No joint effusion. No suspicious soft tissue calcifications. IMPRESSION: Mild narrowing of the lateral facet of the patellofemoral joint, mild narrowing of the lateral joint space at the frontal weight-bearing view. Overall, mild osteoarthritis without trauma. Dictated by: Wan Villasenor M.D. on 09/07/2020 at 11:46 Approved by: Wan Villasenor M.D. on 09/07/2020 at 11:47
== END ==
PROVIDERS: PCP Family Medicine; Referring Provider Family Medicine; Visit Provider Family Medicine
DX: N63.31 Unspecified lump in axillary tail of the right breast (principal); N64.4 Mastodynia; M25.561 Pain in right knee; M17.11 Unilateral primary osteoarthritis, right knee
CPT/HCPCS: 73562; 76642

== ENCOUNTER → 2020-09-14 16:38 | Outpatient (CLI) | payer OTHER, SELFPAY ==
[2020-09-14 18:41] LABS: D Dimer < 200 ng/mL (<230)
== END ==
PROVIDERS: PCP Family Medicine; Referring Provider Family Medicine; Visit Provider Family Medicine
DX: R00.0 Tachycardia, unspecified (principal); R06.02 Shortness of breath
CPT/HCPCS: 36415; 85379

== ENCOUNTER → 2020-09-21 09:32 | Outpatient (CLI) | payer OTHER, SELFPAY ==
[2020-09-21 10:25] LABS: Add Manual Diff / Slide Review NO; Basophils Absolute Auto 100 /uL (0-100); Basophils Percent Auto 0.9 % (0-2); Eosinophils Absolute Auto 200 /uL (0-450); Eosinophils Percent Auto 2.9 % (2-4); Hematocrit 39.4 % (36-46); Hemoglobin 13.6 g/dL (12.0-16.0); Lymphocytes Absolute Auto 2200 /uL (1100-4500); Lymphocytes Percent Auto 33.4 % (25-40); Mean Corpuscular HGB Conc 34.5 % (30-36); Mean Corpuscular Hemoglobin 30.8 PG (26-34); Mean Corpuscular Volume 89.2 fL (80-100); Monocytes Absolute Auto 600 /uL (0-900); Monocytes Percent Auto 9.6 % (3-14); Neutrophils Absolute Auto 3500 /uL (1500-7000); Neutrophils Percent Auto 53.2 % (50-75); Platelet Count 251 X10^3/uL (150-400); Red Blood Cell Count 4.42 X10^6/uL (4.0-5.2); Red Cell Distribution Width 12.7 % (11.6-14.8); White Blood Cell Count 6.6 X10^3/uL (4.5-11.0)
[2020-09-21 10:40] LABS: Alanine Aminotransferase 28 IU/L (<35); Albumin 4.4 g/dL (3.5-5.0); Albumin Globulin Ratio 1.3 (1.0-2.8); Alkaline Phosphatase 79 U/L (38-126); Aspartate Aminotransferase 24 IU/L (14-36); BUN Creatinine Ratio 22.4 (6-22); Bilirubin Total 0.4 mg/dL (0.2-1.3); Blood Urea Nitrogen 15 mg/dL (7-17); Calcium 9.9 mg/dL (8.4-10.2); Carbon Dioxide 31 mmol/L (22-32); Chloride 102 mmol/L (98-107); Estimated Glomerular Filt Rate > 60.0 mL/min (>60); Globulin 3.5 g/dL (1.7-4.1); Glucose 107 mg/dL (70-100); HEMOLYSIS < 15 (0-50); Potassium 3.8 mmol/L (3.4-5.1); Sodium 138 mmol/L (137-145); Total Protein 7.9 g/dL (6.3-8.2)
[2020-09-21 11:09] LABS: Thyroid Stimulating Hormone 1.85 uIU/mL (0.47-4.68)
[2020-09-21 11:16] LABS: Erythrocyte Sedimentation Rate 8 MM/HR (0-20)
[2020-09-23 18:04] LABS: ANA Screen, IFA Negative (.)
== END ==
PROVIDERS: PCP Family Medicine; Referring Provider Family Medicine; Visit Provider Family Medicine
DX: M79.10 Myalgia, unspecified site (principal); R53.1 Weakness; R53.83 Other fatigue
CPT/HCPCS: 36415; 80053; 84443; 85025; 85651; 86038

== ENCOUNTER → 2021-10-26 12:09 | Outpatient (CLI) | payer OTHER, SELFPAY ==
--- NOTE | 2021-10-26 12:10 | DI.RAD.S_ITS ---
PROCEDURE: XR KNEE LT 3V INDICATIONS: Knee injury TECHNIQUE: 3 views of the knee were acquired. COMPARISON: None. FINDINGS: Bones: No fractures or dislocations. No suspicious bony lesions. Soft tissues: No joint effusion. No suspicious soft tissue calcifications. IMPRESSION: No acute finding. Dictated by: Herbie Arrington M.D. on 10/26/2021 at 13:31 Approved by: Herbie Arrington M.D. on 10/26/2021 at 13:31
== END ==
PROVIDERS: PCP Family Medicine; Referring Provider Nurse Practitioner Family; Visit Provider Nurse Practitioner Family
DX: M25.562 Pain in left knee (principal)
CPT/HCPCS: 73562

== ENCOUNTER → 2021-11-06 11:01 | Outpatient (CLI) | payer OTHER, SELFPAY ==
--- NOTE | 2021-11-06 11:02 | DI.MRI.S_ITS ---
PROCEDURE: MR KNEE LT WO CON INDICATIONS: severe left knee pain TECHNIQUE: Noncontrast sagittal PD fast spin echo and T2 fast spin echo with fat saturation, sagittal 3-D FLASH with fat saturation; coronal T1 spin echo and PD fast spin echo with fat saturation, and axial PD fast spin echo with fat saturation through the knee. COMPARISON: [facility], CR, XR KNEE LT 3V, 10/26/2021, 12:14. FINDINGS: Image quality: Excellent. Menisci: The medial and lateral menisci demonstrate normal morphology and internal signal. The meniscal root ligaments appear intact. Cruciate ligaments: The anterior and posterior cruciate ligaments appear intact. Medial structures: The medial collateral ligament appears intact. The posterior oblique ligament, semimembranosus tendon insertions, oblique popliteal ligament, and meniscocapsular junction appear intact. Visualized portions of the pes anserinus tendons appear normal. No abnormal bursal fluid. Lateral structures: The lateral collateral ligament, long and short heads of the biceps femoris tendon appear intact. The popliteus tendon appears normal; the popliteofibular ligament appears intact. The posterosuperior and anteroinferior popliteomeniscal fascicles appear intact. The arcuate and fabellofibular ligaments appear intact, on either side of the lateral inferior geniculate artery. Iliotibial band appears normal. Anterior structures: The quadriceps and patellar tendons appear intact. Patellar alignment is normal. No femoral trochlear dysplasia or ventral trochlear prominence. No edema in the infrapatellar fat pad. Bones and cartilage: Marrow edema is noted in the lateral tibial plateau associated with a small curvilinear hypointensity involving the lateral articular surface. Joint space: There is physiologic knee joint fluid. No Jesus's cyst. Normal appearing synovial plicae are incidentally noted. IMPRESSION: 1. Marrow edema in the lateral tibial plateau may related to small osteochondral defect or bone marrow bruising if any history of trauma exists. 2. No joint effusion Approved by: Blanco Gallegos M.D. on 11/06/2021 at 11:35
== END ==
PROVIDERS: PCP Family Medicine; Referring Provider Family Medicine; Visit Provider Family Medicine
DX: M25.562 Pain in left knee (principal)
CPT/HCPCS: 73721

== ENCOUNTER → 2021-12-30 09:34 | Outpatient (CLI) | payer OTHER, SELFPAY ==
--- NOTE | 2021-12-30 | DI.MRI.S_ITS ---
PROCEDURE: MR KNEE RT WO CON INDICATIONS: RIGHT KNEE PAIN TECHNIQUE: Noncontrast sagittal PD fast spin echo and T2 fast spin echo with fat saturation, sagittal 3-D FLASH with fat saturation; coronal T1 spin echo and PD fast spin echo with fat saturation, and axial PD fast spin echo with fat saturation through the knee. COMPARISON: [facility], CR, XR KNEE RT 3V, 09/07/2020, 11:29. [facility], CR, XR KNEE 1 OR 2 VIEWS RIGHT, 12/21/2021, 16:30. FINDINGS: Image quality: Excellent. Menisci: The medial and lateral menisci demonstrate normal morphology and internal signal. The meniscal root ligaments appear intact. Cruciate ligaments: The anterior and posterior cruciate ligaments appear intact. Medial structures: The medial collateral ligament appears intact. The semimembranosus tendon insertions and meniscocapsular junction appear intact. Visualized portions of the pes anserinus tendons appear normal. No abnormal bursal fluid. Lateral structures: The lateral collateral ligament, long and short heads of the biceps femoris tendon appear intact. The popliteus tendon appears normal. Iliotibial band appears normal. Anterior structures: The quadriceps and patellar tendons appear intact. Patellar alignment is normal. No femoral trochlear dysplasia or ventral trochlear prominence. No edema in the infrapatellar fat pad. There is a small amount of superior patellar bursal fluid consistent with mild bursitis. Bones and cartilage: No bone marrow contusions or fractures. The cartilage of the medial and lateral femorotibial compartments, as well as the patellofemoral compartment, appears normal in thickness. Joint space: There is small knee joint effusion. No Jesus's cyst. Normal appearing synovial plicae are incidentally noted. IMPRESSION: 1. Mild prepatellar bursitis. 2. Small knee joint effusion. Dictated by: Emili Jones M.D. on 12/30/2021 at 14:26 Approved by: Emili Jones M.D. on 12/30/2021 at 14:38
== END ==
PROVIDERS: PCP Family Medicine; Referring Provider Student in an Organized Health Care Education/Training Program; Visit Provider Student in an Organized Health Care Education/Training Program
DX: M70.41 Prepatellar bursitis, right knee (principal); M25.461 Effusion, right knee; M25.561 Pain in right knee; N89.8 Other specified noninflammatory disorders of vagina; N90.89 Other specified noninflammatory disorders of vulva and perineum; N92.0 Excessive and frequent menstruation with regular cycle; R10.30 Lower abdominal pain, unspecified
CPT/HCPCS: 73721; 87491; 87591

== ENCOUNTER → 2021-12-30 13:01 | Outpatient (CLI) | payer OTHER, SELFPAY ==
[2021-12-30 19:03] LABS: Urine N gonorrhoeae NOT DETECTED
[2021-12-30 19:17] LABS: Urine Chlamydia NOT DETECTED
== END ==
PROVIDERS: PCP Family Medicine; Visit Provider Physician Assistant Medical
DX: N89.8 Other specified noninflammatory disorders of vagina (principal); N90.89 Other specified noninflammatory disorders of vulva and perineum; N92.0 Excessive and frequent menstruation with regular cycle; R10.30 Lower abdominal pain, unspecified
CPT/HCPCS: 87491; 87591

== ENCOUNTER → 2022-01-13 11:15 | Outpatient (CLI) | payer OTHER, SELFPAY | PROVIDERS: PCP Family Medicine; Visit Provider Physician Assistant Medical | DX: N90.89 Other specified noninflammatory disorders of vulva and perineum (principal) | CPT/HCPCS: 87070; 87205 ==

== ENCOUNTER → 2022-01-13 11:20 | Outpatient (CLI) | payer OTHER, SELFPAY ==
[2022-01-13 12:19] LABS: Add Manual Diff / Slide Review NO; Basophils Absolute Auto 0 /uL (0-100); Basophils Percent Auto 0.6 % (0-2); Eosinophils Absolute Auto 100 /uL (0-450); Eosinophils Percent Auto 2.1 % (2-4); Hematocrit 35.9 % (36-46); Hemoglobin 12.1 g/dL (12.0-16.0); Lymphocytes Absolute Auto 1800 /uL (1100-4500); Lymphocytes Percent Auto 33.6 % (25-40); Mean Corpuscular HGB Conc 33.7 % (30-36); Mean Corpuscular Hemoglobin 28.2 PG (26-34); Mean Corpuscular Volume 83.7 fL (80-100); Monocytes Absolute Auto 500 /uL (0-900); Monocytes Percent Auto 8.5 % (3-14); Neutrophils Absolute Auto 3000 /uL (1500-7000); Neutrophils Percent Auto 55.2 % (50-75); Platelet Count 248 X10^3/uL (150-400); Red Blood Cell Count 4.29 X10^6/uL (4.0-5.2); Red Cell Distribution Width 13.4 % (11.6-14.8); White Blood Cell Count 5.4 X10^3/uL (4.5-11.0)
[2022-01-13 14:30] LABS: TSH w/ Reflex to FT4 1.88 uIU/mL (0.47-4.68)
== END ==
PROVIDERS: Physician Assistant Medical; PCP Family Medicine; Referring Provider Family Medicine; Visit Provider Family Medicine
DX: N90.89 Other specified noninflammatory disorders of vulva and perineum (principal); N93.9 Abnormal uterine and vaginal bleeding, unspecified; R42 Dizziness and giddiness
CPT/HCPCS: 36415; 84443; 85025; 87070; 87205; 87255

== ENCOUNTER 2022-01-17 11:20 | Emergency (ER) | payer OTHER, SELFPAY ==
[2022-01-17 12:14] VITALS: BP 145/88; PULSE 105; RESP 18; TEMP 36.4; O2SAT 98; BMI 31.6
--- NOTE | 2022-01-17 16:24 | ED.FEMALEGU ---
HPI - Female Genitourinary General Chief complaint: Urogenital-Female Stated complaint: Severe pain lower abd/pelvic x 4 months. worsening Time Seen by Provider: 01/17/22 12:08 Source: patient Mode of arrival: Ambulatory Limitations: no limitations History of Present Illness HPI Narrative: This is a 26-year-old female with persistent lower pelvic pain for the past 4 months which has been increasing in severity. Initially she was having syrup veer periods with heavy bleeding but the pain is now persisting in between her periods. Patient has not had fevers. She will get nauseated, she has not had vomiting. She has had normal bowel movements, no black or bloody stools. No dysuria, urgency or frequency. She has not had any major changes to discharge. She has seen OBGYN, had labs, testing for STDs including herpes, and noted that she occasional will have white spots with the area of the clitoris which are painful but only a couple days in her period and then they resolve. Patient states are not present today. She has had a tubal ligation no other prior surgeries. She has been taking Tylenol and ibuprofen with minimal improvement. No known drug allergies. She has an outpatient ultrasound ordered next week but has not had this done yet. Related Data Previous Rx's Medication Instructions Recorded meloxicam 15 mg tablet 15 mg PO DAILY #30 tabs 11/01/21 meloxicam 7.5 mg tablet 7.5 mg PO BID PRN pain #20 tabs 01/17/22 Allergies Allergy/AdvReac Type Severity Reaction Status Date / Time No Known Drug Allergies Allergy Verified 01/13/22 10:45 Review of Systems Review of Systems ROS Unobtainable: All systems reviewed & are unremarkable except as noted in HPI and below Patient History Medical History Anemia Anxiety Fracture, jaw Helicobacter pylori (H. pylori) infection depression Tachycardia Surgical History H/O arthroscopic knee surgery Hx of right knee surgery [place] teeth extracted Family History Mother Hypertension Gestational diabetes Hypothyroid Father Hypertension Depression PTSD (post-traumatic stress disorder) Anxiety Bipolar 1 disorder Grandmother CVA (cerebral vascular accident) Grandfather Hypertension Grandmother No problems noted. Grandfather COPD (chronic obstructive pulmonary disease) Lung cancer Sister Anxiety Brother Anxiety Depression alcohol intake frequency: a few times a month Substance Use Type: does not use Exam Narrative Exam Narrative: GENERAL: Alert and oriented x three, female in mild distress. HEENT: Head normocephalic, atraumatic, EOMI, pupils reactive, face symmetric, moist mucous membranes NECK: Supple, full range of motion CARDIOVASCULAR: Regular rate and rhythm without murmurs, rubs or gallops. RESPIRATORY: Breath sounds equal bilaterally, no wheezes rales or rhonchi. ABDOMEN: Soft, soft, lower pelvic tenderness bilaterally. Normoactive bowel sounds all 4 quadrants. No guarding or rebound, rigidity, no mass : No CVA tenderness EXTREMITIES: Normal range of motion, no clubbing or edema. Neurovascularly intact NEUROLOGICAL: Cranial nerves II through XII grossly intact. Moving all extremities SKIN: Warm, dry, no petechiae, no rashes or lesions. Initial Vital Signs Initial Vital Signs: Vital Signs Temperature 97.6 F 01/17/22 12:14 Pulse Rate 105 H 01/17/22 12:14 Respiratory Rate 18 01/17/22 12:14 Blood Pressure 145/88 H 01/17/22 12:14 Pulse Oximetry 98 01/17/22 12:14 Oxygen Delivery Method 01/17/22 12:14 Course Orders Ordered: ED Orders 01/17/22 16:39 US pelvic complete Stat 01/17/22 17:00 CBC Auto Diff [Complete Blood Count AUTO DIFF] Stat CMP [Comprehensive Metabolic Panel] Stat Lipase Stat Discontinued Medications Ketorolac Tromethamine (Ketorolac 30 Mg/Ml Vial) 30 mg IM NOW ONE Stop: 01/17/22 16:40 Last Admin: 01/17/22 16:52 Dose: 30 mg Documented By: ES Vital Signs Vital signs: Vital Signs - 8 hr 01/17/22 12:14 Temperature 97.6 F Pulse Rate 105 H Respiratory Rate 18 Blood Pressure 145/88 H Pulse Oximetry 98 Oxygen Delivery Method Room Air MDM - Female Genitourinary Lab Data Result diagrams: 01/17/22 17:00 01/17/22 17:00 Labs: Lab Results 01/17/22 01/17/22 01/17/22 Range/Units 17:00 17:00 17:00 WBC 7.0 (4.5-11.0) X10^3/uL RBC 4.82 (4.0-5.2) X10^6/uL Hgb 13.7 (12.0-16.0) g/dL Hct 40.1 (36-46) % MCV 83.3 (80-100) fL MCH 28.4 (26-34) PG MCHC 34.1 (30-36) % RDW 13.4 (11.6-14.8) % Plt Count 250 (150-400) X10^3/uL Neut % (Auto) 56.8 (50-75) % Lymph % (Auto) 33.0 (25-40) % [place] % (Auto) 8.1 (3-14) % Eos % (Auto) 1.4 L (2-4) % Baso % (Auto) 0.7 (0-2) % Neut # (Auto) 4000 (3190-5055) /uL Lymph # (Auto) 2300 (1051-9138) /uL [place] # (Auto) 600 (0-900) /uL Eos # (Auto) 100 (0-450) /uL Baso # (Auto) 0 (0-100) /uL Sodium 141 (137-145) mmol/L Potassium 3.7 (3.4-5.1) mmol/L Chloride 107 (98-107) mmol/L Carbon Dioxide 26 (22-32) mmol/L BUN 7 (7-17) mg/dL Creatinine 0.64 (0.52-1.04) mg/dL Estimated GFR > 60 (>60) mL/min BUN/Creatinine Ratio 10.9 (6-22) Glucose 89 (70-100) mg/dL Calcium 9.4 (8.4-10.2) mg/dL Total Bilirubin 0.6 (0.2-1.3) mg/dL AST 28 (14-36) IU/L ALT 21 (<35) IU/L Alkaline Phosphatase 89 (38-126) U/L Total Protein 8.6 H (6.3-8.2) g/dL Albumin 5.0 (3.5-5.0) g/dL Globulin 3.6 (1.7-4.1) g/dL Albumin/Globulin Ratio 1.4 (1.0-2.8) Lipase 70 (23-300) U/L Point of Care Testing Test Results Negative Urine Dip Bedside Urine Glucose Negative Bedside Urine Bilirubin - Negative Bedside Urine Ketone - Negative Urine Specific [place] 1.010 Bedside Urine Occult Blood - Negative Bedside Urine pH 6.5 Bedside Urine Protein - Negative Bedside Urine Urobilinogen - Negative Bedside Urine Nitrite - Negative Bedside Urine Leukocytes - Negative Esterase Imaging Data US - SYSTEMS ENGINEER: Radiologist's Impression: [address] [address] Ultrasound Report Signed Patient: Travis Rodarte MR#: [id number] : 1995 Acct:[id number] Age/Sex: 26 / F Date of Service: 01/17/22 Loc: ED Accession Number: [id number] ?? Procedure: US pelvic complete Ordering Provider: Makayla Mix D.O. PROCEDURE:? US PELVIC COMPLETE ? INDICATIONS:? worsening pelvic pain, bleeding intermitteintly x 4 months. ? TECHNIQUE:? Real-time scanning was performed of the pelvic organs, with image documentation.? Additional endovaginal scanning was necessary due to incomplete visualization of the adnexal and endometrial structures by transabdominal scanning.? ? COMPARISON:? None. ? FINDINGS:? ? The uterine body measures 4.1 x 6.2 x 0.4 cm.? There is no uterine mass.? The endometrium measures 12 mm in double air thickness.? There is hypoechoic fluid in the uterine cavity. ? Both ovaries have a normal size and appearance with no ovarian or adnexal mass.? Both ovaries demonstrate normal Doppler flow signal. ? Physiologic free pelvic fluid in the cul-de-sac. ? IMPRESSION:? Fluid in the uterine cavity is consistent with the provided history of active uterine bleeding.? Normal appearance of the endometrium and uterus in the setting of active menstruation.? No significant abnormality. ? ? We strive to produce accurate, complete, and clear reports of imaging services. To assist us in improving patient care, this report was composed using standard report templates and voice recognition software. Therefore, it may contain abnormal punctuation, insertions and/or omissions. Occasional wrong-word or sound-alike substitutions may occur. Though we review the report and make efforts to correct it, we do recommend that the report be read carefully in proper context to recognize any text inaccuracies. ? ? Dictated by: Herbie Arrington M.D. on 01/17/2022 at 18:19 ? ? Approved by: Herbie Arrington M.D. on 01/17/2022 at 18:21?? [facility] Narrative Medical decision making narrative: This is a 26-year-old female with persistent pelvic pain and increasing severity with heavy abnormal periods and occasional white spots on her skin around the clitori that painful just few days on her menses and then resolved. She has had appropriate workup in terms of STDs with her OBGYN Service, she is postop ultrasound she has had increasing discomfort she had normal CBC in the last 4 days but has not had a CMP recently. Pelvic ultrasound was obtained which shows free fluid which is likely physiologic with no other acute changes. Patient and I discussed she has been going through appropriate workup we discussed other possible intra-abdominal causes but this seems the most likely course we also discussed possibility such as endometriosis she has had meloxicam in the past which has been very helpful. Prescription sent with patient with plan for follow-up with her gynecology provider outpatient. Discharge Plan Departure Patient Disposition: Home Clinical Impression: Pelvic pain Instructions: Chronic Pelvic Pain-Female Activity Restrictions/Additional Instructions: Follow up with your gynecology provider, call to set up an appointment time. Your imaging today does show some free fluid but no other changes. Fluid can be normal. You may take pain medication as prescribed. You can take meloxicam or Mobic 1 tablet every 12 hours. You can take Tylenol up to a 1000 mg every 6 hours with this medication. Prescription sent to [facility]. Please return for fevers, worsening abdominal pain, persistent vomiting, black or bloody stools, difficulty or inability urinate, new vaginal bleeding or discharge or other new or concerning symptoms. Prescriptions: New meloxicam 7.5 mg tablet 7.5 mg PO BID PRN (Reason: pain) Qty: 20 0RF No Action meloxicam 15 mg tablet 15 mg PO DAILY Qty: 30 0RF Referrals: Kate Damon MD [Primary Care Provider] - Visit Report Forms: Patient Portal/API
--- NOTE | 2022-01-17 16:39 | DI.US.S_ITS ---
PROCEDURE: US PELVIC COMPLETE INDICATIONS: worsening pelvic pain, bleeding intermitteintly x 4 months. TECHNIQUE: Real-time scanning was performed of the pelvic organs, with image documentation. Additional endovaginal scanning was necessary due to incomplete visualization of the adnexal and endometrial structures by transabdominal scanning. COMPARISON: None. FINDINGS: The uterine body measures 4.1 x 6.2 x 0.4 cm. There is no uterine mass. The endometrium measures 12 mm in double air thickness. There is hypoechoic fluid in the uterine cavity. Both ovaries have a normal size and appearance with no ovarian or adnexal mass. Both ovaries demonstrate normal Doppler flow signal. Physiologic free pelvic fluid in the cul-de-sac. IMPRESSION: Fluid in the uterine cavity is consistent with the provided history of active uterine bleeding. Normal appearance of the endometrium and uterus in the setting of active menstruation. No significant abnormality. We strive to produce accurate, complete, and clear reports of imaging services. To assist us in improving patient care, this report was composed using standard report templates and voice recognition software. Therefore, it may contain abnormal punctuation, insertions and/or omissions. Occasional wrong-word or sound-alike substitutions may occur. Though we review the report and make efforts to correct it, we do recommend that the report be read carefully in proper context to recognize any text inaccuracies. Dictated by: Herbie Arrington M.D. on 01/17/2022 at 18:19 Approved by: Herbie Arrington M.D. on 01/17/2022 at 18:21
[2022-01-17] MEDS: KETOROLAC 30 MG/ML VIAL IM (16:52)
[2022-01-17 17:07] LABS: Add Manual Diff / Slide Review NO; Basophils Absolute Auto 0 /uL (0-100); Basophils Percent Auto 0.7 % (0-2); Eosinophils Absolute Auto 100 /uL (0-450); Eosinophils Percent Auto 1.4 % (2-4); Hematocrit 40.1 % (36-46); Hemoglobin 13.7 g/dL (12.0-16.0); Lymphocytes Absolute Auto 2300 /uL (1100-4500); Mean Corpuscular HGB Conc 34.1 % (30-36); Mean Corpuscular Hemoglobin 28.4 PG (26-34); Mean Corpuscular Volume 83.3 fL (80-100); Monocytes Absolute Auto 600 /uL (0-900); Monocytes Percent Auto 8.1 % (3-14); Neutrophils Absolute Auto 4000 /uL (1500-7000); Neutrophils Percent Auto 56.8 % (50-75); Platelet Count 250 X10^3/uL (150-400); Red Blood Cell Count 4.82 X10^6/uL (4.0-5.2); Red Cell Distribution Width 13.4 % (11.6-14.8)
[2022-01-17 17:26] LABS: Lipase 70 U/L (23-300)
[2022-01-17 17:28] LABS: Alanine Aminotransferase 21 IU/L (<35); Albumin Globulin Ratio 1.4 (1.0-2.8); Alkaline Phosphatase 89 U/L (38-126); Aspartate Aminotransferase 28 IU/L (14-36); BUN Creatinine Ratio 10.9 (6-22); Bilirubin Total 0.6 mg/dL (0.2-1.3); Blood Urea Nitrogen 7 mg/dL (7-17); Calcium 9.4 mg/dL (8.4-10.2); Carbon Dioxide 26 mmol/L (22-32); Chloride 107 mmol/L (98-107); Estimated Glomerular Filt Rate > 60 mL/min (>60); Globulin 3.6 g/dL (1.7-4.1); Glucose 89 mg/dL (70-100); HEMOLYSIS < 15 (0-50); Potassium 3.7 mmol/L (3.4-5.1); Sodium 141 mmol/L (137-145); Total Protein 8.6 g/dL (6.3-8.2)
== END 2022-01-17 18:50 | disposition home or self-care (01) ==
PROVIDERS: Emergency Provider Emergency Medicine; PCP Family Medicine
DX: R10.2 Pelvic and perineal pain (principal); N92.0 Excessive and frequent menstruation with regular cycle
CPT/HCPCS: 36415; 76830; 76856; 80053; 81003; 81025; 83690; 85025; 96372; 99284; J1885

== ENCOUNTER → 2022-02-25 15:32 | Outpatient (CLI) | payer OTHER, SELFPAY ==
[2022-02-25 16:05] LABS: COVID19 -Nasal RAPID Negative (Negative)
== END ==
PROVIDERS: PCP Family Medicine; Visit Provider Obstetrics & Gynecology
DX: Z01.812 Encounter for preprocedural laboratory examination (principal); Z20.822 Contact with and (suspected) exposure to COVID-19
CPT/HCPCS: 87635

== ENCOUNTER 2022-02-28 06:26 | Day surgery (SDC) | payer OTHER, SELFPAY ==
[2022-02-28] VITALS (8 sets, daily range): BP systolic 111–122; BP diastolic 54–77; PULSE 98–127; RESP 13–18; TEMP 36.5–37.2; O2SAT 96–100; BMI 31.0
--- NOTE | 2022-02-28 | PATH_ITS ---
[facility] Accession Number: [id number] No. of containers..02 Tissue . 01 Material submitted: . PART A: fallopian tube - BILATERAL FALLOPIAN TUBES PART B: endometrium - ENDOMETRIAL CURETTINGS . 01 Diagnosis: A. Fallopian Tubes, Bilateral Salpingectomy: Two fimbriated fallopian tubes with single benign paratubal cyst. Negative for significant inflammation and neoplasia. . B. Endometrium, Curettage: Secretory endometrium with focal changes consistent with a polyp. Negative for atypical hyperplasia and malignancy. [facility] 03/02/2022 1700 Local . 01 Electronically signed: . Monika Aguilera MD, Pathologist NPI- [id number] . 01 Gross description: . Received in two parts. . A. Received in formalin in a specimen container, labeled with the patient's name and medical record number, bilateral fallopian tubes, are two unoriented fallopian tubes with patent fimbriae. Fallopian tube #1 measures 3.0 cm in length and 0.4 cm in diameter, and the fimbriae measures 0.2 x 0.8 x 0.5 cm. Fallopian tube #2 measures 4.0 cm in length and 0.4 cm in diameter, and the fimbriae measures 1.2 x 0.6 x 0.5 cm. Both fallopian tube serosal surfaces are pink, smooth, glistening. Within fallopian tube #2 in the ampullary aspect, there is a 0.5 cm in diameter translucent cyst filled with serous content identified. The cut surfaces of both fallopian tubes are patent and cylindrical with 0.2 cm patent lumen. Also in the same container are two unoriented pink soft tissue fragments that measure 1.5 x 0.5 x 0.5 cm and 1.1 x 0.5 x 0.4 cm. Fragment #1 is inked in blue, and fragment #2 is inked in green. Both fragments are serially sectioned to reveal unremarkable cut surfaces. [facility] sections are submitted: . A1: Fallopian tube #1 and additional fragment inked in blue. A2: Fallopian tube #2 with paratubal cyst and fimbriae, cross-section, dairy supplies sales representative, and soft tissue fragment inked in green. . B. Received in formalin in a specimen container, labeled with the patient's name and medical record number, endometrial curetting is an aggregate of multiple semitranslucent mucinous and hawthorne-pink and red soft tissue fragment that measures in aggregate 2.0 x 1.3 x 0.5 cm. The specimen is filtered and entirely submitted in cassette B1. ([id number]) /MRV 03/01/2022 [facility]4 Local . 01 Pathologist provided ICD-10: R10.2, N70.11, N92.0 . 01 CPT . 688235, 716484 Specimen Comment: A courtesy copy of this report has been sent to [phone] Performed at: 01 [facility] [address] [place] [address], [place], [place] [id number] MD Agustín Lyon MD Phone: [phone]
[2022-02-28] MEDS: LACTATED RINGERS 1,000 ML 84 ML IV ×2 (07:01→08:02)
--- NOTE | 2022-02-28 07:29 | PM.HP.1 ---
History of Present Illness History of Present Illness Date Patient Seen: 02/28/22 Time Patient Seen: 07:29 Chief complaint: LAP REMOVAL OF TUBES Narrative: Patient is a 27-year-old 3 para 3 who presents for a laparoscopic bilateral salpingectomy and a D&C hysteroscopy with NovaSure endometrial ablation. This is being done due to menorrhagia and sterilization. Patient History Medical History Anemia Anxiety Fracture, jaw Helicobacter pylori (H. pylori) infection depression Tachycardia Surgical History H/O arthroscopic knee surgery Hx of right knee surgery [place] teeth extracted Family & Social History Family History Mother Hypertension Gestational diabetes Hypothyroid Father Hypertension Depression PTSD (post-traumatic stress disorder) Anxiety Bipolar 1 disorder Grandmother CVA (cerebral vascular accident) Grandfather Hypertension Grandmother No problems noted. Grandfather COPD (chronic obstructive pulmonary disease) Lung cancer Sister Anxiety Brother Anxiety Depression Social History: household members spouse,family,children Tobacco & Substance use: Smoking Status Never smoker alcohol intake frequency a few times a month Substance Use Type does not use Meds Home Medications and Allergies Home Medications Medication Instructions Recorded Confirmed Type meloxicam 15 mg tablet 15 mg PO DAILY #30 tabs 11/01/21 02/28/22 Rx Allergies Allergy/AdvReac Type Severity Reaction Status Date / Time No Known Drug Allergies Allergy Verified 02/28/22 07:01 Exam Vital Signs (past 8 hours): - 02/28/22 07:03 Temperature 97.9 F Pulse Rate 108 H Respiratory Rate 18 Blood Pressure 113/77 Pulse Oximetry 99 Oxygen Delivery Method Room Air Oxygen Delivery Method Room Air Narrative Exam Narrative: HEENT: No thyromegaly, no anterior cervical or supraclavicular lymphadenopathy. Lungs:Clear to auscultation bilaterally, no wheezes. Cardiovascular: Regular rate and rhythm, no murmurs, rubs, or gallops. Abdomen: No scars. No hepatosplenomegaly. No masses palpable. External genitalia: Normal Vagina: Normal Cervix: Normal Bimanual exam: 8 Week size uterus. Mobile. No adnexal masses or tenderness Extremities: No edema Assessment & Plan Assessment & Plan narrative: Assessment: -year-old 3 para 3 who desires permanent sterilization and has menorrhagia Plan: Laparoscopic bilateral salpingectomy and D&C hysteroscopy with NovaSure endometrial ablation The risks, benefits, and alternatives to the procedure were explained to the patient. The risks including bleeding, infection, injury to the bowel, bladder, ureters, or uterine perforation. She understands these risks and agrees to proceed. A full par Q was held and consent form was signed. COVID-19 COVID-19 status: Negative Result date/Date tested (Pos, Neg/Pending): 02/25/22 Time Spent With Patient Time with patient: less than 30 minutes Critical Care time: I spent a total of [] minutes of critical care time on this patient's care today; this time is exclusive of procedural time.
--- NOTE | 2022-02-28 07:32 | PM.PREOP ---
Pre-operative Note COVID-19 COVID-19 status: Negative Result date/Date tested (Pos, Neg/Pending): 02/25/22 Criteria for continued procedure: Non-surgical alternatives not available or appropriate per current SOC Interval Note History & Physical reviewed/Exam performed by Physician: Yes Changes to H&P: No H&P completed within 30 days and has changed as indicated here:: 02/28/22
--- NOTE | 2022-02-28 08:27 | SUR.OPER ---
Lithotomy on padded OR bed, head on pillow, arms padded and tucked at sides. Legs secured in padded yellow fins stirrups.
[2022-02-28] MEDS: BUPIVACAINE 0.5% (PF) 30 ML, EPINEPHrine 0.15 MG INJ (08:31)
--- NOTE | 2022-02-28 09:02 | P.OP_ITS ---
Operative Date/Time/Diagnoses Date of procedure: 02/28/22 Time of procedure: 09:02 Pre-op diagnosis: Hydrosalpinx Pelvic pain Menorrhagia Post-op diagnosis: same Procedure & Clinicians Procedure: Procedures Operation Date: 02/28/22 07:45 Actual Procedure Side Surgeon p Dx Laparoscopy, Laparoscopic Removal of both tubes MD uvaldo Faustin Hysteroscopy w/ Novasure Ablation Henny Mehta MD Indications: Hydrosalpinx Pelvic pain Menorrhagia Surgeon: Henny Mehta Anesthesia Type: General and Local Operative Notes Findings: 6 week size anteverted uterus Tubes status post ligation but with fluid filled stumps near the cornua of the uterus Normal ovaries Normal liver and gallbladder Normal appendix Closure Type: primary Specimen(s): endometrial curettings, left tube and right tube Applied: catheter (In and out) Estimated blood loss (mL): 10 Blood products transfused: none Procedure in detail: After informed consent was obtained, the patient was taken to the operating room where she was placed in the dorsal supine position. After adequate general endotracheal anesthesia was achieved, she was placed in the dorsal lithotomy position, and prepped and draped in the usual sterile fashion. A time-out was performed. A bivalve speculum was placed into the vagina and the anterior lip of the cervix was grasped with a single-tooth tenaculum. The cervical os was sequentially dilated until the Zumi uterine manipulator could pass easily into the endometrial cavity. The single-tooth tenaculum was removed from the anterior lip of the cervix. The bivalve speculum was removed from the vagina. Attention was then turned to the abdomen where 4 cc of 0.25% Marcaine with epinephrine was injected in the umbilical fold. A 5 mm incision was made. Veress needle was placed into the peritoneal cavity, and its placement confirmed by aspiration and drop test. The abdominal cavity was insufflated with 3.2 L of CO2. The Veress needle was removed, and a 5 mm trocar was placed without difficulty. Two other 5 mm incisions were made 4 cm lateral to the midline after 4 cc of 0.25% Marcaine with epinephrine were injected. Two 5 mm trocars were placed under direct visualization. The liver gallbladder and appendix were visualized and were normal. Tubes were status post ligation with hydrosalpinx at the cornual end. The uterus was normal. The ovaries were normal. No evidence of adhesions or endometriosis. The right tube was grasped with an atraumatic grasper at the distal end. Using the power seal, the mesosalpinx was cauterized and cut. The proximal and was then grasped and the mesosalpinx was cauterized and cut all the way down to the cornua of the uterus and the tube was amputated at the cornua out with cautery and cut. The 2 pieces of the tube replaced into the anterior cul-de-sac. The small and was grasped with an atraumatic grasper and pulled through the 5 mm trocar. The longer piece was then grasped at the fimbriated end and pulled through the 5 mm trocar. All of this was repeated on the left side. Hemostasis was achieved. The instruments were removed from the abdomen. The CO2 was allowed to escape. The trocars were removed. The incisions were closed with 4-0 Monocryl in a subcuticular fashion. Steri-Strips and Allevyn dressings were placed. Attention was then turned to the vagina where the Zumi uterine manipulator was removed from the uterus. A bivalve speculum was placed into the vagina. A single-tooth tenaculum was placed on the anterior lip of the cervix. Sharp curettage was performed yielding a large amount of endometrial curettings. The sure sound was placed into the uterus and the cervical stopper was deployed and pulled against the internal cervical os. The uterus sounded to 5 cm. This was set on the catheter and the NovaSure generator. NovaSure catheter passed easily into the endometrial cavity and was opened. The with the uterus was 4.6 cm. This was set on the NovaSure generator. This indicated a power of 127 w. The cavity assessment was performed and passed. The cycle was initiated and lasted 99 seconds. The catheter was closed and removed from the uterus. The single- tooth tenaculum was removed from the anterior lip of the cervix. The bivalve speculum was removed from the vagina. Sponge, lap, and instrument counts were correct x2. The patient tolerated the procedure well, and was taken to PACU in stable condition. Complications: none Post-operative Condition: stable Disposition: PACU Plan for aftercare: Home after recovery
[2022-02-28] MEDS: METOCLOPRAMIDE 10 MG/2 ML INJ IV (09:08)
[2022-02-28] MEDS: OXYCODONE/ACETAMINOPHEN 5/325 TABLET 1 TAB PO (09:18)
--- NOTE | 2022-02-28 10:54 | SUR.PHASEII ---
Late entry: pt ready to go, abdomen soft, dressing c/d/i and ann pad with scan drainage. Pt left unit in stable condition with all belongings.
== END 2022-02-28 10:05 | disposition home or self-care (01) ==
PROVIDERS: PCP Family Medicine; Referring Provider Obstetrics & Gynecology; Visit Provider Obstetrics & Gynecology
PROC: (CPT 58661; principal; 2022-02-28 07:45)
DX: N70.11 Chronic salpingitis (principal); N92.0 Excessive and frequent menstruation with regular cycle; Z30.2 Encounter for sterilization; N83.8 Other noninflammatory disorders of ovary, fallopian tube and broad ligament
CPT/HCPCS: 58661; 58563; 81025; J0171; J1100; J1885; J2250; J2405; J2704; J2765; J3010